=== PATIENT | female | born 1955 | race Caucasian/White ===

== ENCOUNTER → 2016-10-27 08:09 | Outpatient (CLI) | payer BC ==
[2015-08-12 12:26] VITALS: BMI 40.9
[~2016-10-27 08:09] MED LIST: ACETAMINOPHEN500 M1 PO; ADVAIR 250/501 DISK INH; BRILINTA90 MG PO; CLARITIN 10 MG10 MG PO; COZAAR100 MG PO; COZAAR50 MG PO; HYDROCHLOROTHIA25 MG PO; IPRAT-ALBUT 0.5-3 ML NEB; LASIX20 MG PO; LEVAQUIN750 MG PO; LEVOTHROID150 MCG PO; LIPITOR10 MG PO; LOTREL 10/20 CA1 CAP PO; MEDROL DOSE PACK4 MG PO; MELATONIN 3 MG1 TAB PO; NORVASC10 MG PO; PRAVACHOL40 MG PO; PRILOSEC20 MG PO; PROTONIX40 MG PO; PROVENTIL/2.5 MG/3 M NEB; SYNTHROID200 MC1 PO; TESSALON PERLE100 MG OR; ULTRACET TABLET1 TAB PO; ULTRAM50 MG PO; VENTOLIN HFA18 GM INH; ZANTAC300 MG PO
== END | disposition home or self-care (01) ==
LOC: D.RT 09-29 08:00
DX: J84.10 Pulmonary fibrosis, unspecified (principal)

== ENCOUNTER → 2017-03-26 19:09 | Outpatient (CLI) | payer BC ==
[2015-08-12 12:26] VITALS: BMI 40.9
== END | disposition home or self-care (01) ==
LOC: D.MAMMO 02-09 14:45
DX: Z12.31 Encounter for screening mammogram for malignant neoplasm of breast (principal)

== ENCOUNTER → 2017-05-22 12:45 | Outpatient (CLI) | payer BC ==
[2015-08-12 12:26] VITALS: BMI 40.9
== END | disposition home or self-care (01) ==
LOC: D.RAD 12:45
DX: R13.12 Dysphagia, oropharyngeal phase (principal)

== ENCOUNTER → 2017-06-20 12:31 | Outpatient (CLI) | payer BC ==
[2015-08-12 12:26] VITALS: BMI 40.9
== END | disposition home or self-care (01) ==
LOC: D.RAD 12:31
DX: R13.12 Dysphagia, oropharyngeal phase (principal)

== ENCOUNTER → 2017-11-22 12:44 | Outpatient (CLI) | payer BC ==
[2015-08-12 12:26] VITALS: BMI 40.9
== END | disposition home or self-care (01) ==
LOC: D.RAD 12:44
DX: R13.12 Dysphagia, oropharyngeal phase (principal)

== ENCOUNTER → 2018-01-04 12:47 | Outpatient (CLI) | payer BC ==
[2015-08-12 12:26] VITALS: BMI 40.9
== END | disposition home or self-care (01) ==
LOC: D.RAD 12:47
DX: R13.10 Dysphagia, unspecified (principal)